=== PATIENT | male | born 1960 | race Two or more races ===

== ENCOUNTER 2024-12-24 18:52 | Observation (INO) | payer OTHER ==
[~2024-12-24] VITALS: Ht 170.2 cm; Wt 63.6 kg
[2024-12-24 20:17] LABS: Basophils # (auto) 0 10 ^3/uL (0-0.2); Basophils % (auto) 0.4 % (0.0-2.0); Eosinophils # (auto) 0.4 10 ^3/uL (0-0.8); Eosinophils % (auto) 7.3 % (0.0-7.0); Hematocrit 46.7 % (41.0-53.0); Hemoglobin 16.1 g/dL (13.5-17.5); Lymphocytes # (auto) 0.9 10 ^3/uL (0.4-5.4); Lymphocytes % (auto) 15.4 % (10.0-50.0); Mean Corpuscular Hemoglobin 32.5 pg (28.0-32.0); Mean Corpuscular Hgb Conc. 34.4 g/dL (32.0-36.0); Mean Corpuscular Volume 94.4 fL (80.0-100.0); Monocytes # (auto) 0.4 10 ^3/uL (0-1.3); Monocytes % (auto) 6.5 % (0.0-12.0); Neutrophils # (auto) 4.1 10 ^3/uL (1.6-8.6); Neutrophils % (auto) 70.4 % (37.0-80.0); Nucleated Red Blood Cells % 0.1 %; Platelet Count (auto) 98 10^3/uL (140-450); Red Blood Cells 4.95 10^6/uL (4.5-5.90); Red Cell Distribution Width 12.3 % (11.8-14.3); White Blood Cell 5.9 10^3/uL (4.4-10.8)
[2024-12-24 20:24] LABS: Chloride 107 mmol/L (98-107); Potassium 4.1 mmol/L (3.5-5.1); Sodium 140 mmol/L (136-145)
[2024-12-24 20:25] LABS: Anion Gap 6 (5-15); Calcium 9.3 mg/dL (8.7-10.4); Carbon Dioxide 27 mmol/L (20-31)
[2024-12-24 20:30] LABS: BUN/Creatinine Ratio 17.4 (10.0-20.0); Blood Urea Nitrogen 20 mg/dL (9-23); Glucose 100 mg/dL (74-106)
--- NOTE | 2024-12-24 20:42 | ED.PDOC ---
HPI Comments This is a 64-year-old male who comes in with chief complaint of substernal chest pain starting at approximately 9:00 a.m. this morning. The patient states that the pain is sharp in nature. The pain is nonradiating and associated with some shortness a breath. There has been no nausea or vomiting. The patient states that he laid back down after the chest pain started but the pain then returned. The patient denies any fever and chills. Upon arrival, the patient states the pain was a 9/10. He is accompanied in the emergency department's by his family. Chief Complaint: Chest Pain Time Seen by MD: 19:35 Reviewed Notes: Nurses Notes, Senior Fund Accountant Notes, Medications, Allergies (Allergies listed above) Allergies: Coded Allergies: Meperidine (Verified Allergy, Unknown, 12/24/24) Information Source: Patient, Emergency Med Personnel Mode of Arrival: EMS Severity: Moderate Timing: Hours (Started at 9:00 a.m. this morning) Duration: Since onset Prehospital treatment: 12 Lead EKG, Back Line Cook Location: Substernal Radiation: No Radiation Quality: Sharp Onset: At Rest Cardiac Risk Factors: Family History, Hyperlipidemia, HTN PE Risk Factors: None History of: None Past Medical History PAST MEDICAL HISTORY: CVA, High Lipids, HTN Surgical History: Hernia Repair Surgical History (Other): Right shoulder surgery Family History Family History: No family hx of Cancer, No family hx of DM, No family hx of Heart lucia Social History Smoker: Non-Smoker Alcohol: Occasionally Drugs: Marijuana Lives In: Home Constitutional: denies: chills, diaphoresis, fatigue, fever, malaise, sweats, weakness, others EENTM: denies: blurred vision, double vision, ear bleeding, ear discharge, ear drainage, ear pain, ear ringing, eye pain, eye redness, hearing loss, mouth p ain, mouth swelling, nasal discharge, nose bleeding, nose congestion, nose pain, photophobia, tearing, throat pain, throat swelling, voice changes, others Respiratory: reports: shortness of breath; denies: cough, hemoptysis, orthopnea, SOB at rest, SOB with excertion, stridor, wheezing, others Cardiovascular: reports: chest pain; denies: dizzy spells, diaphoresis, Dyspnea on exertion, edema, irregular heart beat, left arm pain, lightheadedness, palpitations, PND, syncope, others Gastrointestinal: denies: abdomen distended, abdominal pain, blood streaked bowels, constipated, diarrhea, dysphagia, difficulty swallowing, hematemesis, melena, nausea, poor appetite, poor fluid intake, rectal bleeding, rectal pain, vomiting, others Genitourinary: denies: burning, dysuria, flank pain, frequency, hematuria, incontinence, penile discharge, penile sore, pain, testicle pain, testicle swelling, urgency, others Neurological: denies: dizziness, fainting, headache, left sided numbness, left sided weakness, numbness, paresthesia, pre-existing deficit, right sided numbness, right sided weakness, seizure, speech problems, tingling, tremors, weakness, others Musculoskeletal: denies: back pain, gout, joint pain, joint swelling, muscle pain, muscle stiffness, neck pain, others Integumetry: denies: bruises, change in color, change in hair/nails, dryness, laceration, lesions, lumps, rash, wounds, others Allergic/Immunocompromised: denies: Difficulty Healing, Frequent Infections, Hives, Itching, others Hematologic/Lymphatic: denies: anemia, blood clots, easy bleeding, easy bruising, swollen glands, others Endocrine: denies: excessive hunger, excessive sweating, excessive thirst, excessive urination, flushing, intolerance to cold, intolerance to heat, unexplained weight gain, unexplained weight loss, others Psychiatric: denies: anxiety, bipolar disorder, depression, hopeless, panic dis order, schizophrenia, sleepless, suicidal, others Physical Exam General Appearance: Moderate Distress HEENT: Normal ENT Inspection, Pharynx Normal, TMs Normal Neck: Full Range of Motion, Non-Tender, Normal, Normal Inspection Respiratory: Chest Non-Tender, Lungs Clear, No Accessory Muscle Use, No Respiratory Distress, Normal Breath Sounds Cardiovascular: No Edema, No JVD, No Murmur, No Gallop, Normal Peripheral Pulses, Regular Rate/Rhythm Breast Exam: Deferred Gastrointestinal: No Organomegaly, Non Tender, No Pulsatile Mass, Normal Bowel Sounds, Soft Genitalia: Deferred Pelvic: Deferred Rectal: Deferred Extremities: No calf tenderness, Normal capillary refill, Normal inspection, Normal range of motion, Non-tender, No pedal edema Musculoskeletal : Apperance: Normal Neurologic: Alert, tipple oiler II-XII nml as Tested, No Motor Deficits, Normal Affect, Normal Mood, No Sensory Deficits Cerebellar Function: Normal Reflexes: Normal Skin: Dry, Normal Color, Warm Lymphatic: No Adenopathy EKG EKG : Pulse Rate (adult): 77 [place]: Normal Cardiac Rhythm: NSR Block: None ST: Nonsp Was a procedure done? Was a procedure done?: No CP Differential Dx Differential Diagnosis: Angina, PR, Pulmonary Embolus Differential Diagnosis: CHF Differential Diagnosis: Pericarditis X-Ray, Labs, Meds, VS Vital Signs Date Time Temp Pulse Resp B/P (MAP) Pulse Ox O2 Delivery O2 Flow Rate FiO2 12/24/24 20:46 77 12/24/24 18:52 97.4 73 20 157/95 (115) 98 97.4 Lab Test 12/24/24 20:06 12/24/24 19:01 Range/Units Troponin I High Sensitivity 7 6 </=54 ng/L White Blood Count 5.9 4.4-10.8 10^3/uL Red Blood Count 4.95 4.5-5.90 10^6/uL Hemoglobin 16.1 13.5-17.5 g/dL Hematocrit 46.7 41.0-53.0 % Mean Corpuscular Volume 94.4 80.0-100.0 fL Mean Corpuscular Hemoglobin 32.5 H 28.0-32.0 pg Mean Corpuscular Hemoglobin Concent 34.4 32.0-36.0 g/dL Red Cell Distribution Width 12.3 11.8-14.3 % Platelet Count 98 L 140-450 10^3/uL Mean Platelet Volume 9.2 6.9-10.8 fL Neutrophils (%) (Auto) 70.4 37.0-80.0 % Lymphocytes (%) (Auto) 15.4 10.0-50.0 % Monocytes (%) (Auto) 6.5 0.0-12.0 % Eosinophils (%) (Auto) 7.3 H 0.0-7.0 % Basophils (%) (Auto) 0.4 0.0-2.0 % Neutrophils # (Auto) 4.1 1.6-8.6 10 ^3/uL Lymphocytes # (Auto) 0.9 0.4-5.4 10 ^3/uL Monocytes # (Auto) 0.4 0-1.3 10 ^3/uL Eosinophils # (Auto) 0.4 0-0.8 10 ^3/uL Basophils # (Auto) 0 0-0.2 10 ^3/uL Nucleated Red Blood Cells 0.1 % Sodium Level 140 136-145 mmol/L Potassium Level 4.1 3.5-5.1 mmol/L Chloride Level 107 98-107 mmol/L Carbon Dioxide Level 27 20-31 mmol/L Anion Gap 6 5-15 Blood Urea Nitrogen 20 9-23 mg/dL Creatinine 1.15 0.700-1.30 mg/dL Glomerular Filtration Rate Calc 70 >90 mL/min BUN/Creatinine Ratio 17.4 10.0-20.0 Serum Glucose 100 74-106 mg/dL Calcium Level 9.3 8.7-10.4 mg/dL Magnesium Level 2.0 1.6-2.6 mg/dL IV Hep-Lock was established The troponin level x2 is negative The CBC and chemistry panel is within normal limits The chest x-ray shows: No sign of any abnormalities at this time At this time the patient was being admitted to the hospitalist Images Reviewed?: Images reviewed and evaluated by me Time of 1ST Reevaluation: 20:45 Reevaluation 1ST: Unchanged Patient Education/Counseling: Diagnosis, Treatment, Prognosis Family Education/Counseling: No Family Present Departure 1 Departure Time of Disposition: 21:05 Impression: Primary Impression: Acute myocardial ischemia Disposition: 09 ADMITTED INPATIENT Admit to: [facility] Condition: Fair Critical Care Note Critical Care Time?: Yes (45 min-critical care time only) Stability Stability form required: Yes Unstable for transfer: Telemetry monitoring (Telemetry monitoring required), ED Physician Assesment (Clinical assesment) Heart Score Heart Score: Heart Score Response (Comments) Value History Moderate Suspicious [address]-Deviation 2 Age >65 2 Risk Factors 1 or 2 risk factors 1 Troponin Normal limit 0 Total 6 DMITRY CROOK MD Dec 24, 2024 20:42
--- NOTE | 2024-12-24 20:51 | DVH ---
CHEST RADIOGRAPH Indication: CP Technique: Frontal and lateral view of the chest was obtained Comparison: None FINDINGS: Lines and Tubes: None Lungs: Clear Pleura: No effusion. No pneumothorax. Cardiomediastinal contours: Unremarkable IMPRESSION: No evidence of acute disease.
[2024-12-24 23:04] VITALS: PULSE 83; RESP 14; O2SAT 96
[2024-12-25] MEDS: ASPirin 325 MG TAB PO ONE (04:05)
[2024-12-25] MEDS: ATORVASTATIN 20 MG TAB PO ONE (04:06)
[2024-12-25] MEDS: MORPHINE SULFATE INJ 2 MG/ml SYRG IV PRN (05:52)
[2024-12-25 06:03] VITALS: PULSE 64; RESP 16; O2SAT 98
[2024-12-25 09:00] VITALS: BP 148/93; RESP 13; TEMP 97.3; O2SAT 97
--- NOTE | 2024-12-25 09:19 | DVHHPRES ---
History of Present Illness Resident Creating Document: ELLIOTT ARITA RESIDENT History of Present Illness 64-year-old male patient with past medical history of stroke, hyperlipidemia, hypertension presented with complaints of substernal chest pain. Patient mentioned that since morning he has been having chest pain which is substernal, it was sharp, exacerbated on activity and relieved on rest, increased on deep inspiration and sneezing, delayed by lying down, has associated shortness of breath. Patient is currently not taking any medication for stroke, hyperlipidemia and hypertension Past medical history Stroke, hyperlipidemia, hypertension Past surgical history Denied recent surgery Social history Denied smoking, alcohol name Consumes marijuana Review of Systems Review of Systems ROS Constitutional: No: Fever, Chills, Sweats, Weakness, Malaise, Other Eyes: No: Pain, Vision change, Conjunctivae inflammation, Eyelid inflammation, Other, Redness ENT: No: Ear pain, Ear discharge, Nose pain, Nose discharge, Nose congestion, Mouth pain, Mouth swelling, Throat pain, Throat swelling, Other Respiratory: No: Cough, Dry, Shortness of breath, SOB with excertion, Wheezing, Hemoptysis, Pleuritic Pain, Sputum, Wheezing, Other Cardiovascular: Chest pain No: Palpitations, Orthopnea, Paroxysmal Noc. Dyspnea, Edema, Lt Headedness, Other Gastrointestinal: No: Nausea, Vomiting, Abdominal Pain, Diarrhea, Constipation, Melena, Hematochezia, Other Musculoskeletal: No: other, neck pain, shoulder pain, arm pain, back pain, hand pain, leg pain, foot pain Neurological:; No: Weakness, Numbness, Incoordination, Change in speech, Confusion, Seizures Allergies: Coded Allergies: Meperidine (Verified Allergy, Unknown, 12/24/24) Medications Current Medications Medications Dose Ordered Sig/Sixto Route Start Time Stop Time Status Last Admin Dose Admin Nitroglycerin 0.4 mg Q5MINP PRN SL 12/25/24 02:15 Morphine Sulfate 2 mg Q30M PRN IV 12/25/24 02:15 12/25/24 05:52 2 MG Exam Vital Signs Vital Signs Date Time Temp Pulse Resp B/P (MAP) Pulse Ox O2 Delivery O2 Flow Rate FiO2 12/25/24 06:22 64 17 151/90 12/25/24 06:03 98 Room Air* 0 21 12/25/24 02:56 97.1 97.1 Exam Examination General Appearance: Alert, Oriented X3, Cooperative, No acute distress HEENT: EOMI Respiratory: Clear to auscultation, Normal air movement Cardiovascular: Regular rate, Normal S1, Normal S2 Abdominal: Normal bowel sounds Extremities: No cyanosis, No edema, Normal pulses, No tenderness/swelling Skin: No rashes, No breakdown Neuro: Normal gait, Normal speech, Strength at 5/5 X4 ext, Normal tone, Sensation intact, Cranial nerves 3-12 NL, Reflexes 2+ Psych/Mental Status: Mental status NL, Mood NL Labs/Xrays Labs Test 12/25/24 02:31 12/24/24 19:01 Range/Units Troponin I High Sensitivity 6 </=54 ng/L C-Reactive Protein High Sensitivity 0.03 <1.0 mg/dL White Blood Count 5.9 4.4-10.8 10^3/uL Red Blood Count 4.95 4.5-5.90 10^6/uL Hemoglobin 16.1 13.5-17.5 g/dL Hematocrit 46.7 41.0-53.0 % Mean Corpuscular Volume 94.4 80.0-100.0 fL Mean Corpuscular Hemoglobin 32.5 H 28.0-32.0 pg Mean Corpuscular Hemoglobin Concent 34.4 32.0-36.0 g/dL Red Cell Distribution Width 12.3 11.8-14.3 % Platelet Count 98 L 140-450 10^3/uL Mean Platelet Volume 9.2 6.9-10.8 fL Neutrophils (%) (Auto) 70.4 37.0-80.0 % Lymphocytes (%) (Auto) 15.4 10.0-50.0 % Monocytes (%) (Auto) 6.5 0.0-12.0 % Eosinophils (%) (Auto) 7.3 H 0.0-7.0 % Basophils (%) (Auto) 0.4 0.0-2.0 % Neutrophils # (Auto) 4.1 1.6-8.6 10 ^3/uL Lymphocytes # (Auto) 0.9 0.4-5.4 10 ^3/uL Monocytes # (Auto) 0.4 0-1.3 10 ^3/uL Eosinophils # (Auto) 0.4 0-0.8 10 ^3/uL Basophils # (Auto) 0 0-0.2 10 ^3/uL Nucleated Red Blood Cells 0.1 % Sodium Level 140 136-145 mmol/L Potassium Level 4.1 3.5-5.1 mmol/L Chloride Level 107 98-107 mmol/L Carbon Dioxide Level 27 20-31 mmol/L Anion Gap 6 5-15 Blood Urea Nitrogen 20 9-23 mg/dL Creatinine 1.15 0.700-1.30 mg/dL Glomerular Filtration Rate Calc 70 >90 mL/min BUN/Creatinine Ratio 17.4 10.0-20.0 Serum Glucose 100 74-106 mg/dL Calcium Level 9.3 8.7-10.4 mg/dL Magnesium Level 2.0 1.6-2.6 mg/dL Assessment/Plan Assessment/Plan Assessment/plan # chest pain, rule out ACS, cardiac type of chest pain -aspirin 325 mg and high-dose statins EKG and troponins, within normal limits, patient has multiple risk factors for atherosclerotic disease -echocardiogram # history of stroke -consider resuming 81 mg aspirin and statins # hyperlipidemia -statins # hypertension -consider resuming home medication on discharge Case discussed with Dr. Jarrell Plan discussed with: Other My Orders Orders - ELLIOTT ARITA RESIDENT Procedure Category Date Status Time Electrocardigram EKG 12/25/24 Logged 02:13 Nitroglycerin PHA 12/25/24 In Process Sublingual (Ntrostat 02:15 Morphine Sulfate PHA 12/25/24 In Process Injection 02:15 Oxygen By Nasal RT 12/25/24 Transmitted Cannula 02:13 Stat Ekg For Chest [facility] 12/25/24 In Process Pain 02:13 Notify Of Changes [facility] 12/25/24 In Process From Base 02:13 Field Representatives Director For [facility] 12/25/24 In Process 24 Hours 02:[address] [facility] 12/25/24 In Process Protocol 02:13 Rhythm Strips Once [facility] 12/25/24 In Process Every Shift 02:13 Electrocardigram EKG 12/25/24 Logged 03:13 Electrocardigram EKG 12/25/24 Logged 05:13 Echo 2d Mode Cardiac US 12/25/24 Logged DOP 02:13 Date of Service: Dec 25, 2024 Billing Provider: SHAKIRA JARRELL MD Common Visit Codes: 04103-RHDIDPY INP/OBS CARE (HIGH) Secondary Visit Codes: 13037-OZYVDZGA CARE PLAN 30 MINUTES ELLIOTT ARITA RESIDENT Dec 25, 2024 09:19 SHAKIRA JARRELL MD Dec 25, 2024 11:23
[2024-12-25] MEDS: NITROGLYCERIN 0.4 MG SL TAB SL PRN (10:50)
[2024-12-25 13:33] VITALS: BP 115/76; PULSE 62; RESP 13; TEMP 97.3; O2SAT 97
--- NOTE | 2024-12-25 13:42 | ECG ---
[facility] [place] Test Date: 2024-12-24 Test Time: 18:57:08 Pat Name: RAHUL KEATING Department: ED Room: [address] [place] [address] Gender: M Senior Analyst: carlos : 1960 Requested By: ELLIOTT ARITA Order Number: [id number] Reading MD: Raul Talamantes Measurements Intervals [place] Rate: 77 P: 69 IN: 150 QRS: 67 QRSD: 98 T: 33 QT: 417 QTc: 472 Interpretive Statements Sinus rhythm Electronically Signed On 12-26-2024 20:50:14 PDT by Raul Talamantes Please click the below link to view image of tracing.
--- NOTE | 2024-12-25 13:42 | ECG ---
[facility] Test Date: 2024-12-24 Test Time: 21:31:39 Pat Name: RAHUL KEATING Department: ED Room: [address] [place] [address] Gender: M Logistics Planning Engineer: MARCO A : 1960 Requested By: ELLIOTT ARITA Order Number: [id number] Reading MD: Raul Talamantes Measurements Intervals [place] Rate: 79 P: 77 PA: 148 QRS: 76 QRSD: 99 T: 55 QT: 433 QTc: 497 Interpretive Statements Sinus rhythm Probable left atrial enlargement Borderline prolonged QT interval Electronically Signed On 12-26-2024 20:51:20 PDT by Raul Talamantes Please click the below link to view image of tracing.
[2024-12-25] MEDS: FAMOTIDINE (10MG/ML) 2ML VL IV ONE (13:57)
--- NOTE | 2024-12-25 14:39 | ECG ---
[facility] Test Date: 2024-12-25 Test Time: 05:31:10 Pat Name: RAHUL KEATING Department: [facility] ED Room: [address] [place] [address] Gender: M Looping Machine Operator: scotty : 1960 Requested By: ELLIOTT ARITA Order Number: [id number] Reading MD: Raul Talamantes Measurements Intervals [place] Rate: 65 P: 71 TN: 156 QRS: 67 QRSD: 104 T: 61 QT: 472 QTc: 491 Interpretive Statements Sinus rhythm Probable left atrial enlargement Borderline prolonged QT interval Electronically Signed On 12-26-2024 20:53:04 PDT by Raul Talamantes Please click the below link to view image of tracing.
--- NOTE | 2024-12-25 23:26 | DVHDS2 ---
Discharge Summary Date of Admission Dec 25, 2024 at 02:13 Date of Discharge: Dec 25, 2024 Labs/Diagnostic Data: Laboratory Results Test 12/25/24 02:31 12/24/24 19:01 Troponin I High Sensitivity 6 ng/L (</=54) C-Reactive Protein High Sensitivity 0.03 mg/dL (<1.0) White Blood Count 5.9 10^3/uL (4.4-10.8) Red Blood Count 4.95 10^6/uL (4.5-5.90) Hemoglobin 16.1 g/dL (13.5-17.5) Hematocrit 46.7 % (41.0-53.0) Mean Corpuscular Volume 94.4 fL (80.0-100.0) Mean Corpuscular Hemoglobin 32.5 pg (28.0-32.0) Mean Corpuscular Hemoglobin Concent 34.4 g/dL (32.0-36.0) Red Cell Distribution Width 12.3 % (11.8-14.3) Platelet Count 98 10^3/uL (140-450) Mean Platelet Volume 9.2 fL (6.9-10.8) Neutrophils (%) (Auto) 70.4 % (37.0-80.0) Lymphocytes (%) (Auto) 15.4 % (10.0-50.0) Monocytes (%) (Auto) 6.5 % (0.0-12.0) Eosinophils (%) (Auto) 7.3 % (0.0-7.0) Basophils (%) (Auto) 0.4 % (0.0-2.0) Neutrophils # (Auto) 4.1 10 ^3/uL (1.6-8.6) Lymphocytes # (Auto) 0.9 10 ^3/uL (0.4-5.4) Monocytes # (Auto) 0.4 10 ^3/uL (0-1.3) Eosinophils # (Auto) 0.4 10 ^3/uL (0-0.8) Basophils # (Auto) 0 10 ^3/uL (0-0.2) Nucleated Red Blood Cells 0.1 % Sodium Level 140 mmol/L (136-145) Potassium Level 4.1 mmol/L (3.5-5.1) Chloride Level 107 mmol/L (98-107) Carbon Dioxide Level 27 mmol/L (20-31) Anion Gap 6 (5-15) Blood Urea Nitrogen 20 mg/dL (9-23) Creatinine 1.15 mg/dL (0.700-1.30) Glomerular Filtration Rate Calc 70 mL/min (>90) BUN/Creatinine Ratio 17.4 (10.0-20.0) Serum Glucose 100 mg/dL (74-106) Calcium Level 9.3 mg/dL (8.7-10.4) Magnesium Level 2.0 mg/dL (1.6-2.6) Other Laboratory Tests 12/24/24 19:01 Brief Hx & Hospital Course: Patient presents with complaints of chest pain on exertion for the past day. He notes it is reproducible with deep exhalation. Patient denies previous VT, history of chest pain with exertion. He received nitroglycerin with no relief. Patient was evaluated by cardiology. Troponin was non-elevated x3. He was cleared for discharge by cardiology and will follow up outpatient for TTE. Abdoulaye BARRY to arrange follow up appointments. Condition at Discharge: Good Final Diagnosis/Problems List Chest Pain Discharge Disposition: Home Discharge Instruct/Medications Diet: Cardiac 2g Na,low cholest Activity: No Restrictions, As Tolerated Follow Up/Referral: Follow up with cardiology outpatient. Discharge Statement: "Patient was advised to return to the ER or call 911 if any headaches, dizziness, shortness of breath, chest pain, abdominal pain, bleeding, fevers, or worsening of medical condition. Patient was counseled about treatment plan, medications, possible side effects, patientverbalized understanding. All questions were answered to the best of my ability. This discharge took greater then 30 minutes in planning, reviewing documentation, counseling the patient, and discussing with other team members." ASSESSMENT ASSESSMENT Assessment Chest Pain ELENA CASON DO Dec 25, 2024 23:26
--- NOTE | 2024-12-26 00:44 | DVHINCON2 ---
Date of service: Dec 25, 2024 Referring Physician Vikki Reason for Consultation Chest pain History of Present Illness This is a 64-year-old male with a PMH of CVA, High Lipids, HTN who presented to the ED with complaints of substernal chest pain that began around 9am this morning. Patient states that the pain is sharp in nature, nonradiating and associated with slight shortness a breath. Patient states that he laid back down after the chest pain started but the pain then returned. Upon arrival, the patient states the pain was a 9/10. Chest x-ray showed NAD. EKG is NSR at 77. CBC and chemistry panel is within normal limits. Troponin level x2 is negative. Patient was admitted to the hospital. I am asked to consult on this patient. Family History: Diabetes mellitus G8 FATHER Allergies: Coded Allergies: Meperidine (Verified Allergy, Unknown, 12/24/24) Home Meds No Active Prescriptions or Reported Meds Current Medications Current Medications Medications (Trade) Dose Ordered Sig/Sixto Route PRN Reason Start Time Stop Time Status Last Admin Nitroglycerin (Ntrostat Sublingual) 0.4 mg Q5MINP PRN SL FOR CHEST PAIN 12/25/24 02:15 12/25/24 10:54 Morphine Sulfate 2 mg Q30M PRN IV FOR CHEST PAIN 12/25/24 02:15 12/25/24 10:59 Review of Systems Constitutional: denies: chills, diaphoresis, fatigue, fever, malaise, sweats, weakness, others EENTM: denies: blurred vision, double vision, ear bleeding, ear discharge, ear drainage, ear pain, ear ringing, eye pain, eye redness, hearing loss, mouth pain, mouth swelling, nasal discharge, nose bleeding, nose congestion, nose pain, photophobia, tearing, throat pain, throat swelling, voice changes, others Respiratory: reports: shortness of breath; denies: cough, hemoptysis, orthopnea, SOB at rest, SOB with excertion, stridor, wheezing, others Cardiovascular: reports: chest pain; denies: dizzy spells, diaphoresis, Dyspnea on exertion, edema, irregular heart beat, left arm pain, lightheadedness, palpitations, PND, syncope, others Gastrointestinal: denies: abdomen distended, abdominal pain, blood streaked bowels, constipated, diarrhea, dysphagia, difficulty swallowing, hematemesis, melena, nausea, poor appetite, poor fluid intake, rectal bleeding, rectal pain, vomiting, others Genitourinary: denies: burning, dysuria, flank pain, frequency, hematuria, incontinence, penile discharge, penile sore, pain, testicle pain, testicle swelling, urgency, others Neurological: denies: dizziness, fainting, headache, left sided numbness, left sided weakness, numbness, paresthesia, pre-existing deficit, right sided numbness, right sided weakness, seizure, speech problems, tingling, tremors, weakness, others Musculoskeletal: denies: back pain, gout, joint pain, joint swelling, muscle pain, muscle stiffness, neck pain, others Integumetry: denies: bruises, change in color, change in hair/nails, dryness, laceration, lesions, lumps, rash, wounds, others Allergic/Immunocompromised: denies: Difficulty Healing, Frequent Infections, Hives, Itching, others Hematologic/Lymphatic: denies: anemia, blood clots, easy bleeding, easy bruising, swollen glands, others Endocrine: denies: excessive hunger, excessive sweating, excessive thirst, excessive urination, flushing, intolerance to cold, intolerance to heat, unexplained weight gain, unexplained weight loss, others Psychiatric: denies: anxiety, bipolar disorder, depression, hopeless, panic disorder, schizophrenia, sleepless, suicidal, others Vital Signs Vital Signs Date Time Temp Pulse Resp B/P (MAP) Pulse Ox O2 Delivery O2 Flow Rate FiO2 12/25/24 11:54 115/76 12/25/24 11:29 74 15 12/25/24 09:00 97.3 97 97.3 12/25/24 06:03 Room Air* 0 21 Physical Exam GENERAL: Alert and oriented x 3. No acute distress. EYES: PERRL, EOMI. Anicteric. HENT: Moist mucous membranes. LUNGS: Clear to auscultation bilaterally. CARDIOVASCULAR: Regular rate and rhythm. ABDOMEN: Soft, nontender and nondistended. EXTREMITIES: No edema. NEUROLOGIC: No focal neurological deficits. SKIN: Warm, dry. Labs/Diagnostic Data Labs Test 12/25/24 02:31 12/24/24 19:01 Range/Units Troponin I High Sensitivity 6 </=54 ng/L C-Reactive Protein High Sensitivity 0.03 <1.0 mg/dL White Blood Count 5.9 4.4-10.8 10^3/uL Red Blood Count 4.95 4.5-5.90 10^6/uL Hemoglobin 16.1 13.5-17.5 g/dL Hematocrit 46.7 41.0-53.0 % Mean Corpuscular Volume 94.4 80.0-100.0 fL Mean Corpuscular Hemoglobin 32.5 H 28.0-32.0 pg Mean Corpuscular Hemoglobin Concent 34.4 32.0-36.0 g/dL Red Cell Distribution Width 12.3 11.8-14.3 % Platelet Count 98 L 140-450 10^3/uL Mean Platelet Volume 9.2 6.9-10.8 fL Neutrophils (%) (Auto) 70.4 37.0-80.0 % Lymphocytes (%) (Auto) 15.4 10.0-50.0 % Monocytes (%) (Auto) 6.5 0.0-12.0 % Eosinophils (%) (Auto) 7.3 H 0.0-7.0 % Basophils (%) (Auto) 0.4 0.0-2.0 % Neutrophils # (Auto) 4.1 1.6-8.6 10 ^3/uL Lymphocytes # (Auto) 0.9 0.4-5.4 10 ^3/uL Monocytes # (Auto) 0.4 0-1.3 10 ^3/uL Eosinophils # (Auto) 0.4 0-0.8 10 ^3/uL Basophils # (Auto) 0 0-0.2 10 ^3/uL Nucleated Red Blood Cells 0.1 % Sodium Level 140 136-145 mmol/L Potassium Level 4.1 3.5-5.1 mmol/L Chloride Level 107 98-107 mmol/L Carbon Dioxide Level 27 20-31 mmol/L Anion Gap 6 5-15 Blood Urea Nitrogen 20 9-23 mg/dL Creatinine 1.15 0.700-1.30 mg/dL Glomerular Filtration Rate Calc 70 >90 mL/min BUN/Creatinine Ratio 17.4 10.0-20.0 Serum Glucose 100 74-106 mg/dL Calcium Level 9.3 8.7-10.4 mg/dL Magnesium Level 2.0 1.6-2.6 mg/dL Assessment Chest pain. History of stroke. Hyperlipidemia. Hypertension. Plan/Recommendation I agree with your ongoing assessment and care of plan. Telemetry reviewed. Echo. Aspirin, Lipitor. Cardiac cleared for discharge. Follow up with me in my office in 1 day. Additional plan as per the hospital course. A total of 45 minutes was spent reviewing the patient record, examining the patient, making a diagnostic and therapeutic plan, discussing this plan with medical personnel, following up on diagnostic studies and following the patient for clinical stability excluding any and all procedures. At least 50% of this time was spent in direct, [id number] contact. Plan discussed with: Patient RENÉE DE LA CRUZ MD Dec 25, 2024 13:16
--- NOTE | 2024-12-29 16:11 | DVHSR ---
APPROVED REPORT EXAM: Two-dimensional and M-mode echocardiogram with Doppler and color Doppler. Blood Pressure: 151/90 mmHg INDICATION Chest Pain RISK FACTORS Height: 5'7", Weight: 140 DIMENSIONS LVDd3.8 (3.8-5.7cm)LA (2D)3.3 (1.9-4.0cm)Aortic Root4.4 (2.0-3.7cm) LVDs2.7 (2.5-4.0cm)LA (MM) (1.9-4.0cm)Aortic Cusp Exc2.0 (1.5-2.0cm) EF (%) 55.0 (55-70%)Rt. Atrium3.9 (1.9-4.0cm)Asc. Aorta cm IVSd1.0 (0.7-1.1cm)RV (D)3.3 (1.8-2.4cm) PWd1.1 (0.7-1.1cm) Mitral Valve MitralMitral Stenosis E wave0.65m/sMV Mean GR.mmHg A wave0.76m/sMV Peak GR.mmHg E/A ratio0.92D MVAcm2 DECEL [id number] 1/2 Timems Aortic Valve Aortic ValveAortic Stenosis V10.85m/Sriram Mean GR.2mmHg V20.85m/Sriram Peak GR.3mmHg LVOT Diameter2.4 (1.8-2.4cm)Doppler AVA4.52cm2 Pulmonic Valve V20.74m/s Conclusion MILD LVH AND MILD LV DIASTOLIC DYSFUNCTION LV EF IS 65% NORMAL VALVES NO EFFUSION NORMAL RV FUNCTION,SIZE AND PRESSURE
== END 2024-12-25 14:30 | disposition home or self-care (01) ==
LOC: EDBD 18:52 → ER 18:56 → OVERFLOW 12-25 02:13 → INTOOBSV 12-25 02:13
PROVIDERS: ADMIT Student in an Organized Health Care Education/Training Program; ATTEND Student in an Organized Health Care Education/Training Program
DX: R07.89 Other chest pain (principal); I99.8 Other disorder of circulatory system; E78.5 Hyperlipidemia, unspecified; I10 Essential (primary) hypertension; F12.90 Cannabis use, unspecified, uncomplicated; Z86.73 Personal history of transient ischemic attack (TIA), and cerebral infarction without residual deficits; Z79.899 Other long term (current) drug therapy; Z86.2 Personal history of diseases of the blood and blood-forming organs and certain disorders involving the immune mechanism; Z88.8 Allergy status to other drugs, medicaments and biological substances
CPT/HCPCS: 36415; 71046; 80048; 83735; 84484; 85025; 86141; 93005; 93306; 96374; 96375; 96376; 99291; G0378; J2270; J3490